=== PATIENT | female | born 1960 | race Caucasian/White ===

== ENCOUNTER 2018-01-26 18:52 | Emergency (ER) | payer OTHER, MEDICARE ==
[~2018-01-26 18:52] MED LIST: ATROPINE 0.5 MG/5 ML DISP.SYRIN.; EPINEPHrine SYRINGE 1 MG/10 ML SYRINGE; EPINEPHrine VIAL 30 MG/30 ML VIAL; SODIUM BICARB ADULT 8.4% 50 MEQ/50 ML DISP.SYRIN.
[2018-01-26] MEDS ORDERED: NOREPINEPHRIN PREMIX 250 ML IV (19:11)
[2018-01-26] MEDS ORDERED: IV NORMAL SALINE 1000ML BAG 1,000 ML IV (19:14)
[2018-01-26] MEDS ORDERED: ALTEPLASE 50 MG IV ×2 (19:15→19:30)
[2018-01-26 19:24] LABS: BASO # 0.3 x10^3/uL (0.0-0.2); BASO % 2 % (0-3); EOS # 0.2 x10^3/uL (0.0-0.7); EOS % 1 % (0-3); HEMATOCRIT 53.2 % (36.0-47.0); LYMPH # 9.8 x10^3/uL (1.0-4.8); LYMPH % 62 % (24-48); MEAN CORPUSCULAR HEMOGLOBIN 30 pg (25-35); MEAN CORPUSCULAR HGB CONC 32 g/dL (31-37); MEAN CORPUSCULAR VOLUME 94 fL (79-100); MONO % 6 % (0-9); NEUT # 4.5 x10^3uL (1.8-7.7); NEUT % 28 % (31-73); PLATELET COUNT 230 x10^3/uL (140-400); RED BLOOD COUNT 5.65 x10^6/uL (3.50-5.40); RED CELL DISTRIBUTION WIDTH 14.1 % (11.5-14.5); WHITE BLOOD COUNT 15.7 x10^3/uL (4.0-11.0)
[2018-01-26 19:25] LABS: AGAP ISTAT 21 mmol/L (6-14); BUN ISTAT 28 mg/dL (8-26); CHLORIDE ISTAT 101 mmol/L (98-110); CREATININE ISTAT 0.9 mg/dL (0.5-1.4); GLUCOSE ISTAT 435 mg/dL (70-99); HEMATOCRIT ISTAT 52 % (36-40); HEMOGLOBIN ISTAT 17.7 g/dL (12-15); ION CA ISTAT 1.11 mmol/L (1.13-1.32); POTASSIUM ISTAT 4.4 mmol/L (3.5-5.0); SODIUM ISTAT 137 mmol/L (135-145); TOT CO2 ISTAT 20 mmol/L (23-32)
[2018-01-26 19:29] LABS: ADD MAN DIFF? YES
[2018-01-26 19:34] LABS: PROTHROMBIN TIME PATIENT 12.9 SEC (11.7-14.0)
[2018-01-26] MEDS ORDERED: MIDAZOLAM HCL/PF 2 MG/2 ML VIAL. (19:37)
[2018-01-26] MEDS ORDERED: fentaNYL PF VIAL 100 MCG/2 ML VIAL (19:37)
[2018-01-26] MEDS ORDERED: IODIXANOL 320 MG/ML 100 ML VIAL. (19:38)
[2018-01-26] MEDS ORDERED: LIDOCAINE 2% 20 ML VIAL. (19:38)
[2018-01-26 20:03] LABS: % ATYL 2 % (0-0); % BANDS 1 % (0-9); % LYMPHS 52 % (24-48); % MONOS 4 % (0-10); % SEGS 41 % (35-66); PLT ESTIMATE ADEQUATE (ADEQUATE)
[2018-01-26] MEDS ORDERED: SUCCINYLCHOLINE 200 MG/10 ML VIAL. (20:06)
[2018-01-26] MEDS ORDERED: MIDAZOLAM HCL/PF 5 MG/5 ML VIAL. (20:06)
[2018-01-26] MEDS ORDERED: ETOMIDATE 20 MG/10 ML VIAL. IV (20:06)
[2018-01-27 09:16] LABS: POC GLUCOSE 441 mg/dL (70-99)
== END 2018-01-26 20:00 | disposition expired ==
LOC: ER 20:00
DX: I46.9 Cardiac arrest, cause unspecified (principal); E11.9 Type 2 diabetes mellitus without complications; Z95.5 Presence of coronary angioplasty implant and graft; I25.10 Atherosclerotic heart disease of native coronary artery without angina pectoris
CPT/HCPCS: 31500; 36415; 80047; 82962; 84484; 85007; 85025; 85610; 92950; 93005; 99285-25; J0171; J0461